=== PATIENT | male | born 1965 ===

== ENCOUNTER 2017-10-08 20:33 | Emergency (ER) | payer SELFPAY ==
[2017-10-08 20:40] VITALS: BP 127/84; PULSE 88; RESP 17; TEMP 97.7; O2SAT 91
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
== END 2017-10-08 20:55 ==
DX: S49.91XA Unspecified injury of right shoulder and upper arm, initial encounter (principal); V49.60XA Unspecified car occupant injured in collision with unspecified motor vehicles in traffic accident, initial encounter; Y92.410 Unspecified street and highway as the place of occurrence of the external cause